=== PATIENT | female | born 1995 | race Caucasian/White ===

== ENCOUNTER 2016-11-16 12:10 | Emergency (ER) | payer SELFPAY ==
[~2016-11-16 12:10] MED LIST: ALBUTEROL17 GM INH; ALLERGY MEDICATION; ANTIVERT PO; AUGMENTIN PO; AUGMENTIN875 MG PO; BACITRACIN1 GM OINT TOP; BACTRIM DS TABL1 TA1 PO; BACTRIM DS TABL1 TA2 PO; BENADRYL25 M1 PO; BENZONATATE PO; DIFLUCAN PO; FLEXERIL10 M1 PO; FLEXERIL10 MG PO; IBUPROFEN800 MG PO; LORTAB 5/500 TA1 TA2 PO; MOTRIN600 MG PO; NAPROSYN-EC500 M1 PO; NAPROXEN PO; NO MEDICATIONS; PEPCID AC20 M2 PO; PHENERGAN DM1 ML PO; PHENERGAN25 M1 PO; PHENERGAN25 MG PO; PREDNISONE PO; PROAIR HFA8.5 GM INH; PYRIDIUM PO; ROBITUSSIN A-C10 ML PO; TESSALON PERLE100 M1 PO; TYLENOL #3 PO; VIBRAMYCIN100 M1 PO; VOLTAREN75 MG PO; ZITHROMAX PO; ZOFRANODT PO
== END 2016-11-16 12:21 | disposition home or self-care (01) ==
LOC: SED 12:10
DX: S10.96XA Insect bite of unspecified part of neck, initial encounter (principal); L03.221 Cellulitis of neck; F17.200 Nicotine dependence, unspecified, uncomplicated; W57.XXXA Bitten or stung by nonvenomous insect and other nonvenomous arthropods, initial encounter
CPT/HCPCS: 99282